=== PATIENT | female | born 1935 ===

== ENCOUNTER 2018-01-04 10:25 | Emergency (ER) | payer OTHER ==
[~2018-01-04] VITALS: Ht 157.5 cm; Wt 51.7 kg
[2018-01-04] MEDS ORDERED: ARICEPT10 MG (11:00)
[2018-01-04] MEDS ORDERED: DICLOFENAC SODI50 MG PO (14:00)
[2018-01-04] MEDS ORDERED: MEDROLPACK PO (14:00)
== END 2018-01-04 14:42 | disposition home or self-care (01) ==
LOC: ER 10:25
DX: M54.5 Low back pain (principal)

== ENCOUNTER 2018-10-14 10:20 | Outpatient (CLI) | payer OTHER ==
[~2018-10-14 10:20] MED LIST: ARICEPT10 MG; DICLOFENAC SODI50 MG PO; MEDROLPACK PO
== END 2018-10-14 10:32 | disposition home or self-care (01) ==
LOC: NUCLEAR 10:20
DX: R55 Syncope and collapse (principal)